=== PATIENT | female | born 1950 | race Two or more races ===

== ENCOUNTER 2018-09-04 08:33 | Emergency (ER) | payer OTHER ==
[~2018-09-04] VITALS: Ht 152.4 cm; Wt 65.3 kg
[2018-09-04] MEDS ORDERED: [UNRECOGNIZED DRUG - REMARK] (08:38)
--- NOTE | 2018-09-04 08:49 | NUR ---
BIB RA SP NEAR SYNCOPE, SMALL LACERATION LEFT EYE BROW. PLACED ON MONITOR, EKG ORDERED.
[2018-09-04 08:54] LABS: BASOPHILS % (AUTO) 0.3 % (0.0-2.0); EOSINOPHILS % (AUTO) 0.8 % (0.0-6.0); HEMATOCRIT 39 % (33-45); HEMOGLOBIN 12.8 g/dL (11.5-14.8); LYMPHOCYTES # (AUTO) 1.5 /CMM (0.8-4.8); LYMPHOCYTES % (AUTO) 14.2 % (20.0-44.0); MEAN CORPUSCULAR HGB CONC 33 g/dl (31.0-36.0); MEAN CORPUSCULAR VOLUME 84 fL (82-100); MONOCYTES # (AUTO) 0.6 /CMM (0.1-1.30); MONOCYTES % (AUTO) 5.9 % (2.0-12.0); NEUTROPHILS # (AUTO) 8.1 /CMM (1.8-8.9); NEUTROPHILS % (AUTO) 78.8 % (43.0-81.0); PLATELET COUNT (AUTO) 190 /CMM (150-450); RED BLOOD CELL COUNT(AUTO) 4.61 MIL/uL (4.0-5.2); WHITE BLOOD COUNT (AUTO) 10.3 K/uL (4.3-11.0)
--- NOTE | 2018-09-04 08:57 | NUR ---
RADIO AT BEDSIDE.
[2018-09-04] MEDS: IV NS 0.9% 1,000 ML BAG IV ONE (09:01)
[2018-09-04 09:04] LABS: CALCIUM, SERUM 8.5 mg/dL (8.5-10.1); CARBON DIOXIDE 26 mmol/L (21-32); CHLORIDE 102 mmol/L (98-107); CREATININE 0.6 mg/dL (0.6-1.3); GLUCOSE 117 mg/dL (74-106); POTASSIUM 3.5 mmol/L (3.5-5.1); SODIUM SERUM 138 mmol/L (136-145); UREA NITROGEN, BLOOD 13 mg/dL (7-18)
[2018-09-04 09:21] LABS: APPEARANCE,URINE CLEAR (CLEAR); BILIRUBIN,URINE NEGATIVE (NEGATIVE); BLOOD, URINE L Ery/uL (NEGATIVE); COLOR,URINE YELLOW (YELLOW); PH,URINE 6.5 (5.0-8.0); PROTEIN,URINE >300 mg/dl (NEGATIVE); UGLUCOSE NEGATIVE (NEGATIVE)
[2018-09-04 09:22] LABS: KETONES,URINE NEGATIVE (NEGATIVE); LEUKOCYTE ESTERASE ,URINE M (NEGATIVE); NITRITE, URINE NEGATIVE (NEGATIVE); UROBILINOGEN,URINE 0.2 EU/dL (0.2)
[2018-09-04 09:52] LABS: RBC,URINE 21-50 /HPF (0-2)
[2018-09-04 09:53] LABS: BACTERIA,URINE Few /HPF (None Seen); SQUAMOUS EPITHELIAL CELL,UR Rare /HPF (None Seen); WBC,URINE 51-80 /HPF (0-3)
[2018-09-04] MEDS ORDERED: CEFTRIAXONE 1GM BAG (ER ONLY) 50 ML IV ONE (10:30)
[2018-09-04] MEDS: CEFTRIAXONE 1 G in IV D5W 50 ML IV ONE (10:35)
[2018-09-04 11:19] VITALS: BP 154/76
== END 2018-09-04 11:20 | disposition home or self-care (01) ==
LOC: ER 08:38
DX: S05.12XA Contusion of eyeball and orbital tissues, left eye, initial encounter (principal); N39.0 Urinary tract infection, site not specified; R55 Syncope and collapse; I10 Essential (primary) hypertension; E78.5 Hyperlipidemia, unspecified; X58.XXXA Exposure to other specified factors, initial encounter; Y93.89 Activity, other specified; Y92.89 Other specified places as the place of occurrence of the external cause; Y99.8 Other external cause status
CPT/HCPCS: 36415; 71045-TC; 80048-TC; 81000-TC; 84484-TC; 85025-TC; 87086-TC; 87186-TC; A4606; J0696; J7030; J7060; Z7610